=== PATIENT | female | born 1990 | race Caucasian/White ===

== ENCOUNTER 2016-12-29 08:02 | Emergency (ER) | payer OTHER, SELFPAY ==
[~2016-12-29] VITALS: Ht 170.2 cm; Wt 170.5 kg
[2016-12-29] MEDS ORDERED: NAPR500T3 PO (08:17)
[2016-12-29 09:06] LABS: CONTROL LINE UCG INT CTR LINE PRESENT
--- NOTE | 2016-12-29 09:34 | REP ---
Chest x-ray: Two views. History: Cough . Comparison study: No comparison . Findings: The lungs are well inflated and free of infiltrate. The pleural angles are sharp. The heart size is normal. Pulmonary vasculature is not increased. No significant bony abnormality is seen. Impression: Negative chest x-ray. Signed by Koby Albert MD 12/29/2016 09:25 A
[2016-12-29 10:00] VITALS: BP 151/82
== END 2016-12-29 10:01 | disposition home or self-care (01) ==
LOC: M ED 08:02
DX: J06.9 Acute upper respiratory infection, unspecified (principal); Z88.1 Allergy status to other antibiotic agents; Z88.2 Allergy status to sulfonamides